=== PATIENT | male | born 1990 | race Caucasian/White ===

== ENCOUNTER → 2017-06-06 | Day surgery (SDC) | payer OTHER ==
[~2017-06-06] MED LIST: LIDOCAINE 2%/EPI 1:100,000 20 ML VIAL. IJ
[2017-06-06] MEDS: LIDOCAINE 2%/EPI 1:100,000 20 ML VIAL. IJ ×2 (11:08)
== END | disposition home or self-care (01) ==
LOC: SURG 10:32
DX: L72.3 Sebaceous cyst (principal)
CPT/HCPCS: 11442; 88304; J3490